=== PATIENT | male | born 1995 | race Caucasian/White ===

== ENCOUNTER → 2020-08-22 | Outpatient (CLI) | payer SELFPAY | LOC: M LABSMTC 14:03 | PROVIDERS: ATTEND Pediatrics | DX: Z20.822 Contact with and (suspected) exposure to COVID-19 (principal) ==

== ENCOUNTER 2022-09-15 14:58 | Emergency (ER) | payer OTHER ==
[~2022-09-15] VITALS: Ht 175.3 cm; Wt 86.1 kg
[2022-09-15 14:58] VITALS: BP 129/86
[2022-09-15] MEDS ORDERED: PENICILLIN V POTASSIUM 500 MG TAB PO ONE (15:35)
[2022-09-15] MEDS ORDERED: PERCOCET 5MG/325MG TAB PO ONE (15:35)
[2022-09-15] MEDS ORDERED: PERC5TAB12 PO (15:45)
[2022-09-15] MEDS ORDERED: PENI500T PO (15:46)
== END 2022-09-15 15:51 | disposition home or self-care (01) ==
LOC: M ED 14:58
DX: K04.7 Periapical abscess without sinus (principal); K08.89 Other specified disorders of teeth and supporting structures

== ENCOUNTER → 2024-05-04 | Outpatient (REF) | payer BC ==
[~2024-05-04] MED LIST: PENI500T PO; PERC5TAB12 PO
[2024-05-07 18:34] LABS: THYROID PEROXIDASE ANTIBODY > 1300.0 U/ML (<60.0)
== END ==
LOC: M LAB REF 16:25
PROVIDERS: ATTEND Internal Medicine
DX: E04.9 Nontoxic goiter, unspecified (principal)

== ENCOUNTER → 2024-10-05 | Outpatient (REF) | payer BC ==
[2024-10-05 18:43] LABS: THYROID PEROXIDASE ANTIBODY > 1300.0 U/ML (<60.0)
== END ==
LOC: M LAB REF 16:45
PROVIDERS: ATTEND Internal Medicine
DX: E04.9 Nontoxic goiter, unspecified (principal)

== ENCOUNTER → 2024-10-22 | Outpatient (CLI) | payer OTHER | LOC: M RAD 15:19 | PROVIDERS: ATTEND Internal Medicine | DX: E04.9 Nontoxic goiter, unspecified (principal) ==

== ENCOUNTER → 2025-04-12 | Outpatient (CLI) | payer OTHER ==
[2025-04-12 19:14] LABS: ALT/SGPT 41.0 U/L (7.0-40); AST/SGOT 23.0 U/L (<34)
== END ==
LOC: M PLALAB 15:48
PROVIDERS: ATTEND Podiatrist
DX: Z51.81 Encounter for therapeutic drug level monitoring (principal)

== ENCOUNTER → 2025-04-25 | Outpatient (CLI) | payer OTHER | LOC: M RAD 12:33 | PROVIDERS: ATTEND Internal Medicine | DX: E04.1 Nontoxic single thyroid nodule (principal) ==